=== PATIENT | female | born 1970 | race Caucasian/White ===

== ENCOUNTER → 2018-05-27 21:15 | Outpatient (CLI) | payer OTHER | END | disposition home or self-care (01) | LOC: D.MAMMO 09:45 | DX: Z12.31 Encounter for screening mammogram for malignant neoplasm of breast (principal) ==

== ENCOUNTER → 2018-07-04 16:41 | Outpatient (CLI) | payer OTHER | END | disposition home or self-care (01) | LOC: D.MAMMO 11:00 | DX: R92.8 Other abnormal and inconclusive findings on diagnostic imaging of breast (principal) ==

== ENCOUNTER → 2019-02-20 13:23 | Outpatient (CLI) | payer MEDICAID ==
[~2019-02-20 13:23] MED LIST: ADDERALL 10 MG10 MG PO; ATIVAN1 MG PO; CARAFATE1 G PO; CYCLOBENZAPRINE10 MG PO; DEPAKOTE250 MG PO; GABAPENTIN100 MG PO; HCTZ25 MG PO; HYDROCODON-ACE1 EA10 PO; LINZESS290 MCG PO; LIPITOR10 MG PO; MOBIC7.5 MG PO; NEXIUM40 MG PO; NP THYROID30 MG PO; POTASSIUM99 M1 PO; PROMETRIUM100 MG PO; TYLENOL PM1 TAB PO
--- NOTE | 2019-02-27 11:12 | EC ---
PATIENT:DANIEL GALARZA DATE OF SERVICE: 02/20/19 SEX: F MEDICAL RECORD: [id number] DATE OF : [birth year] LOCATION:[facility] AGE OF PATIENT: 48 ADMISSION DATE: 02/20/19 REFERRING PHYSICIAN: INTERPRETING PHYSICIAN: RICK OREILLY MD ECHOCARDIOGRAM REPORT ECHO CHARGES 4 ECHO COMPLETE Date: 02/20/19 CLINICAL DIAGNOSIS: ANGINA/ABNORMAL EKG H/O HTN/POST CARDIOMYOPATHY ECHOCARDIOGRAPHIC MEASUREMENTS (adult normal given) AC root (d.<3.7cm) 2.8 cm LV Septum d (<1.2 cm> 0.9 cm Valve Excursion 1.7 cm LV Septum (systole) 1.5 cm Left Atria (s.<4.0cm> 3.5 cm LVPW d(<1.2cm) 0.9 cm RV (d.<2.3cm) 2.3 cm LVPW (sytole) 1.6 cm LV diastole(<5.6CM) 4.9 cm MV E-F(>70mm/sec) cm LV systole 2.9 cm LVOT Diameter 1.7 cm MV exc.(>10mm) cm Est.ejection fraction (50-75%) % DOPPLER: LVIT cm/sec A 118 cm/sec E 71.0 cm/sec LA cm/sec RVSP 26.1 mmHg LVOT 121 cm/sec AOP1/2T m/s Asc. Ao 161 cm/sec RVOT 69.0 cm/sec RA cm/sec PA 98.0 cm/sec AV Gradient Peak 10.4 mmHg AV Mean 6.5 mmHg AV Area 1.6 cm MV Gradient Peak 6.5 mmHg MV Mean 2.1 mmHg MV Area cm COMMENTS: OP - HC Engineering Test Specialist: 1 DEEPTI QUINNOE Inside Sales Engineer: 3 Dr. Wade TAPE# PACS Pericardial Effusion N DATE OF SERVICE: 02/20/2019 Adequate 2-D echo, color-flow and spectral Doppler, and M-mode. No LVH. LV internal dimensions are normal. Wall motion is normal. EF is greater than or equal to 55%. Aortic valve is tricuspid. No evidence of stenosis by Doppler interrogation. Left atrium is normal. Mitral valve shows no prolapse. Trace MR. Right-sided chambers are grossly normal. Trace TR. ECHOCARDIOGRAM REPORT [id number] DANIEL GALARZA MARTÍNEZ TRANSINT:[id number] Voice Confirmation ID: [id number] DOCUMENT ID: [id number] RICK ROEILLY MD at 1112 CC: [id number] DICTATION DATE: 02/23/19 1508 PRODUCTION BROACHER: 02/23/19 1527 [facility] CLI 02/20/19 [place] [id number] [place] [id number]
[2019-05-14 07:39] VITALS: BMI 30.1
== END | disposition home or self-care (01) ==
LOC: D.HCCARDIO 13:23
PROVIDERS: ATTEND Internal Medicine Interventional Cardiology
DX: I20.9 Angina pectoris, unspecified (principal)

== ENCOUNTER → 2019-02-23 08:48 | Outpatient (CLI) | payer MEDICAID ==
--- NOTE | 2019-02-24 14:37 | ST ---
PATIENT:DANIEL GALARZA [facility] MEDICAL RECORD: [id number] SEX: F LOCATION:[facility] ORDER #: ADMISSION DATE: 02/23/19 AGE OF PATIENT: 48 REFERRING PHYSICIAN: INTERPRETING PHYSICIAN: GEOVANY PALMER MD DATE OF SERVICE: 02/23/2019 INDICATION: Angina, abnormal ECG, hypertension. TECHNIQUE: She was exercised on standard Lexiscan protocol with 31 mCi of sestamibi injected at peak stress, 10 mCi used previously for rest images. FINDINGS: Gated SPECT reveals preserved ejection fraction at 77% with good wall motion and thickening and brightening throughout all segments. SPECT imaging Cardiolite was used as myocardial fusion agent. There is homogeneous uptake throughout all segments at rest and stress with no evidence of inducible ischemia or previous infarction. OVERALL IMPRESSION: 1. This is a normal nuclear stress test with no evidence of inducible ischemia or previous infarction. 2. Gated SPECT reveals a preserved ejection fraction at 77%. In this patient with ongoing symptomatology, the current scan does not suggest the presence of hemodynamically significant coronary artery disease. Evaluate noncardiac etiology of chest pain. TRANSINT:[id number] Voice Confirmation ID: [id number] DOCUMENT ID: [id number] GEOVANY PALMER MD at 1437 CC: RONALD MILLAN MD [id number] DICTATION DATE: 02/23/19 1559 CORE MAN: 02/24/19 0537 [facility] CLI 02/23/19 [facility] [address] [place] [address]
== END | disposition home or self-care (01) ==
LOC: D.HCCARDIO 08:48
PROVIDERS: ATTEND Internal Medicine Interventional Cardiology
DX: I20.9 Angina pectoris, unspecified (principal)

== ENCOUNTER → 2019-03-25 08:01 | Outpatient (CLI) | payer MEDICAID | END | disposition home or self-care (01) | LOC: D.US 08:01 → D.NM 09:00 | PROVIDERS: ATTEND Internal Medicine Gastroenterology | DX: R10.9 Unspecified abdominal pain (principal); R14.0 Abdominal distension (gaseous); R11.0 Nausea ==

== ENCOUNTER → 2019-04-24 09:07 | Outpatient (CLI) | payer MEDICAID | END | disposition home or self-care (01) | LOC: D.NM 09:07 | PROVIDERS: ATTEND Internal Medicine Gastroenterology | DX: R10.9 Unspecified abdominal pain (principal); R14.0 Abdominal distension (gaseous); R11.0 Nausea ==

== ENCOUNTER → 2019-04-29 08:00 | Outpatient (CLI) | payer BC | END | disposition home or self-care (01) | LOC: D.MAMMO 08:00 | PROVIDERS: ATTEND Family Medicine | DX: R92.8 Other abnormal and inconclusive findings on diagnostic imaging of breast (principal) ==

== ENCOUNTER 2019-05-14 06:46 | Day surgery (SDC) | payer MEDICAID ==
[2019-05-11 11:21] LABS: BASOPHILS 0.2 % (0-2); EOSINOPHILS 0.7 % (0-7); HEMATOCRIT 36.2 % (36.0-48.0); HEMOGLOBIN 12.4 g/dL (12-16); IMMATURE GRANULOCYTES 0.1 % (0-5); MCHC 34.3 g/dL (31.0-37.0); MCV 84.6 fL (80.0-100.0); MEAN PLATELET VOLUME 11.6 fL (7.4-10.4); MONOCYTES 5.3 % (2-11); NEUTROPHILS 59.7 % (40-80); PLATELET COUNT 222 10x3/uL (130-400); RBC 4.28 10x6/uL (4.00-5.40); RDW 13.3 % (11.5-14.5)
[2019-05-11 11:37] LABS: ANION GAP 14.4 mmol/L (8-16); CALCIUM 9.1 mg/dL (8.5-10.1); CARBON DIOXIDE 28.8 mmol/L (21.0-32.0); POTASSIUM - SERUM 3.2 mmol/L (3.5-5.1)
[~2019-05-14] VITALS: Ht 160 cm; Wt 77.1 kg
[~2019-05-14 06:46] MED LIST changes: -HYDROCODON-ACE1 EA10 PO
[2019-05-14 07:39] VITALS: BP 114/72; Ht 160 cm; Wt 77.1 kg
[2019-05-14] MEDS ORDERED: HYDROCODON-ACE1 EA10 PO (11:03)
--- NOTE | 2019-05-14 16:44 | NUR ---
1330-TOLERATED FULL LIQUID TRAY, UNABLE TO URINATE, DENIES PAIN. VSS
--- NOTE | 2019-05-14 16:44 | NUR ---
1150-REC'D FROM RR, DROWSY, EASILY AROUSED,VSS. FAMILY AT BEDSIDE, CL IN EASY REACH.
--- NOTE | 2019-05-14 16:45 | NUR ---
1630-PT DID URINATE, DISCAHRGE CRITERIA MET. REMOVED IV WITH CATH INTACT,DISPOSED INTO SHARPS,COVERED WITH BANDAID. REVIEWED DISCAHRGE INSTSRUCTIONS WITH PT AND MOTHER.VERBALIZED UNDERSTANDING. ESCORTED OUT VIA W/C WITH MOTHER TO DRIVE HOME. DISCHARGE INSTRUCTIONS IN HAND
--- NOTE | 2019-05-14 16:45 | NUR ---
1400-CONTACTED WITH BLADDER SCAN READING OF 230CC. PT IS ABLE TO GO HOME AT THIS TIME WITH NO FURTHER ORDERS.
--- NOTE | 2019-05-21 07:19 | OP ---
PATIENT NAME: DANIEL GALARZA MEDICAL RECORD: [id number] :66 LOCATION:[facility] ADMISSION DATE: SURGEON: MCKINLEY ARCE MD DATE OF OPERATION: 05/14/2019 PREOPERATIVE DIAGNOSES: 1. Biliary dyskinesia. 2. Hypertension. 3. Hypercholesterolemia. 4. Hypothyroidism. 5. Gastroesophageal reflux disease. POSTOPERATIVE DIAGNOSES: 1. Biliary dyskinesia. 2. Hypertension. 3. Hypercholesterolemia. 4. Hypothyroidism. 5. Gastroesophageal reflux disease. PROCEDURE: Laparoscopic cholecystectomy. SURGEON: Mckinley Arce MD REPORT OF PROCEDURE: The patient's abdomen was prepped and draped in sterile fashion. A cutdown was made on the superior aspect of the umbilicus, 0 Vicryls were placed in the fascia bilaterally and the fascia was incised with 15-blade. I then bluntly entered the peritoneal cavity and placed a 12-mm Candida port. Under direct visualization, a 5 mm trocar was placed in the epigastrium and 2 more 5-mm trocars were placed in the right subcostal region. The gallbladder was grasped and elevated. The cystic artery and cystic duct were dissected free and these were clipped proximally and distally and ligated in standard fashion. The gallbladder was then taken off the liver bed using electrocautery and placed into the right upper quadrant. Any bleeding from the liver bed was then treated with electrocautery. At this point, the ports and insufflation were then removed and the gallbladder was taken out through the umbilicus. The umbilical fascia was closed with interrupted 0 Vicryls times 3. The wounds were then irrigated out with normal saline, infused with 10 mL of 0.25% Marcaine with epinephrine. The skin incisions were all closed with subcutaneous 5-0 Monocryl and dressed appropriately. COMPLICATIONS: None. CONDITION: Stable. ANESTHESIA: General endotracheal and local. BLOOD LOSS: Minimal. TRANSINT:[id number] Voice Confirmation ID: [id number] DOCUMENT ID: [id number] OPERATIVE REPORT [id number] DANIEL GALARZA MCKINLEY ARCE MD at 0719 CC: RONALD MILLAN MD and FAVIO STEELE DO [id number] DICTATION DATE: 05/14/19 1107 IT INSTRUCTOR: 05/14/19 1123 [facility] 05/14/19 [facility] [address] [place] [address]
== END 2019-05-14 16:30 | disposition home or self-care (01) ==
LOC: D.OPS 06:46 → D.PAN 10:00 → D.OPS 16:30
PROVIDERS: ATTEND Surgery
DX: K82.4 Cholesterolosis of gallbladder (principal); I10 Essential (primary) hypertension; E78.00 Pure hypercholesterolemia, unspecified; E03.9 Hypothyroidism, unspecified; K21.9 Gastro-esophageal reflux disease without esophagitis; Z01.812 Encounter for preprocedural laboratory examination

== ENCOUNTER → 2019-10-05 10:07 | Outpatient (CLI) | payer MEDICAID ==
[2019-05-14 07:39] VITALS: BMI 30.1
[~2019-10-05 10:07] MED LIST changes: +HYDROCODON-ACE1 EA10 PO
== END | disposition home or self-care (01) ==
LOC: D.US 10:00
PROVIDERS: ATTEND Internal Medicine Gastroenterology
DX: R16.0 Hepatomegaly, not elsewhere classified (principal)

== ENCOUNTER → 2019-10-16 11:31 | Outpatient (CLI) | payer MEDICAID ==
[2019-05-14 07:39] VITALS: BMI 30.1
[2019-10-16 12:21] LABS: % SATURATION 14 % (15-55); IRON 59 ug/dl (35-150); TOTAL IRON BIND CAPACITY 409 ug/dl (260-445); UNSAT IRON BIND CAPACITY 350 ug/dl (150-375)
[2019-10-16 12:38] LABS: CHOL - HDL RATIO 6.9 ratio (2.3-4.1); LDL-HDL RATIO 3.6 ratio (1.5-3.5)
[2019-10-17 05:09] LABS: ANA REFLEX - DIRECT Negative (Negative)
[2019-10-17 12:09] LABS: HEPATITIS C ANTIBODY <0.1 S/CO RAT (0.0-0.9)
[2019-10-17 16:08] LABS: HAPTOGLOBIN 313 mg/dL (33-346)
[2019-10-18 18:07] LABS: SMOOTH MUSCLE ABS (ACTIN) 6 Units (0-19)
[2019-10-19 16:08] LABS: MITOCHONDRIAL ANTIBODY <20.0 Units (0.0-20.0)
== END | disposition home or self-care (01) ==
LOC: D.LAB 11:31
PROVIDERS: ATTEND Internal Medicine Gastroenterology
DX: K76.0 Fatty (change of) liver, not elsewhere classified (principal); R74.8 Abnormal levels of other serum enzymes

== ENCOUNTER → 2020-04-04 08:49 | Outpatient (CLI) | payer MEDICAID ==
[2019-05-14 07:39] VITALS: BMI 30.1
[2020-04-04 09:33] LABS: ALBUMIN 3.2 g/dL (3.4-5.0); BILIRUBIN - DIRECT 0.06 mg/dL (0.00-0.30); BILIRUBIN - INDIRECT 0.14 mg/dL (0.00-1.00); BILIRUBIN - TOTAL 0.2 mg/dL (0.2-1.3); PROTEIN - SERUM 6.8 g/dL (6.4-8.2)
== END | disposition home or self-care (01) ==
LOC: D.US 08:49
PROVIDERS: ATTEND Internal Medicine Gastroenterology
DX: K76.0 Fatty (change of) liver, not elsewhere classified (principal)